=== PATIENT | male | born 1985 | race Two or more races ===

== ENCOUNTER 2022-11-23 06:12 | Emergency (ER) | payer SELFPAY ==
[~2022-11-23] VITALS: Ht 182.9 cm; Wt 81.6 kg
[2022-11-23] MEDS ORDERED: ASPIRIN 81 MG TAB.CHEW PO ONE (06:30)
--- NOTE | 2022-11-23 06:31 | NUR ---
PRESENTED TO THE ER FOR C/O WOKE UP WITH L SIDED, NON- RADIATING CHEST PRESSURE 8/10. PATIENT ALSO REPORTED HARD TIME BREATHING. DENID PAST MEDICAL HISTORY, PATIENT WAS PLACED IN ER BED 9, ON MONITOR. VSS.
--- NOTE | 2022-11-23 06:33 | NUR ---
EMT AT BED SIDE FOR EKG
--- NOTE | 2022-11-23 06:40 | NUR ---
20GA TO RIGHT AC ESTABLISHED
--- NOTE | 2022-11-23 06:42 | NUR ---
BLOOD COLLECTED AND SENT TO LAB
[2022-11-23] MEDS ORDERED: ASPIRIN 81 MG TAB.CHEW ONE (06:46)
--- NOTE | 2022-11-23 06:56 | NUR ---
URINE CUP OFFERED FOR URINE SAMPLE
--- NOTE | 2022-11-23 06:58 | NUR ---
X-RAY AT BEDSIDE
--- NOTE | 2022-11-23 07:04 | NUR ---
URINE COLLECTED SENT TO LAB
[2022-11-23 07:06] LABS: BASOPHILS # (AUTO) 0.1 K/uL (0.0-0.2); BASOPHILS % (AUTO) 0.6 % (0.0-2.0); EOSINOPHILS % (AUTO) 2.2 % (0.0-6.0); HEMATOCRIT 47 % (39-51); HEMOGLOBIN 15.8 g/dL (13.5-17.5); LYMPHOCYTES # (AUTO) 4.1 K/uL (0.8-4.8); LYMPHOCYTES % (AUTO) 41.4 % (20.0-44.0); MEAN CORPUSCULAR HGB CONC 34 g/dl (31.0-36.0); MEAN CORPUSCULAR VOLUME 88 fL (80-96); MONOCYTES # (AUTO) 0.8 K/uL (0.1-1.30); MONOCYTES % (AUTO) 7.8 % (2.0-12.0); NEUTROPHILS # (AUTO) 4.8 K/uL (1.8-8.9); PLATELET COUNT (AUTO) 277 K/uL (150-450); RED BLOOD CELL COUNT(AUTO) 5.28 MIL/uL (4.5-6.0)
[2022-11-23 07:08] LABS: CALCIUM, SERUM 9.7 mg/dL (8.5-10.1); CARBON DIOXIDE 29 mmol/L (21-32); CHLORIDE 104 mmol/L (98-107); CREATININE 0.9 mg/dL (0.6-1.3); GLUCOSE 117 mg/dL (74-106); POTASSIUM 3.9 mmol/L (3.5-5.1); SODIUM SERUM 140 mmol/L (136-145); UREA NITROGEN, BLOOD 17 mg/dL (7-18)
--- NOTE | 2022-11-23 07:22 | NUR ---
REPORT GIVEN TO NELLIE PACHECO FOR GERBER
--- NOTE | 2022-11-23 07:29 | NUR ---
pt received on bed comfortably. awke and not in CR DISTRESS
[2022-11-23] MEDS ORDERED: IBUP-1955 PO (09:37)
[2022-11-23 09:46] VITALS: BP 123/86
--- NOTE | 2022-11-23 09:46 | NUR ---
IV removed. Catheter intact and site benign. Pressure and 4x4 applied to site. No bleeding noted.Patient discharged to home in stable condition. Written and verbal after care instructions given. Patient verbalizes understanding of instruction.
== END 2022-11-23 09:47 | disposition home or self-care (01) ==
LOC: ER 06:18
DX: R07.89 Other chest pain (principal); F17.200 Nicotine dependence, unspecified, uncomplicated; F17.210 Nicotine dependence, cigarettes, uncomplicated
CPT/HCPCS: 36415; 71045-TC; 80048-TC; 84484-TC; 85025-TC; G0480